=== PATIENT | male | born 1990 | race Caucasian/White ===

== ENCOUNTER 2017-10-22 22:16 | Emergency (ER) | payer OTHER ==
[~2017-10-22] VITALS: Ht 185.4 cm; Wt 86.2 kg
[~2017-10-22 22:16] MED LIST: NO RTN MEDS; PER PO
--- NOTE | 2017-10-22 22:20 | ER Report ---
History and Physical Time Seen By MD: 22:20 HPI/ROS CHIEF COMPLAINT: Right foot injury HISTORY OF PRESENT ILLNESS: 26-year-old male presents ambulatory to the ER complaining of severe left foot pain. Patient kicked a wall accidentally. He has deformity of his 4th and 5th toe. There is an abrasion on the side of the 4th toe. Patient states his tetanus shots greater than 10 years. Patient notes 6/10 throbbing pain, worsened with palpation and movement. Allergies: Coded Allergies: No Known Allergies (Verified Allergy, Mild, 10/22/17) Home Meds Active Scripts Oxycodone Hcl/Acetaminophen (PERCOCET 5-325 MG TABLET) 1 Each Tablet, 1 EACH PO Q4-6H Y for PAIN, #15 Prov:KRISH SON DO 10/22/17 Discontinued Reported Medications Oxycodone/Acetaminophen (OXYCODONE/ACETAMINOPHEN 5MG/325 MG) 5 Mg/325 Mg Tab, 1 TAB PO Q6H Y, #15 0 Refills 06/18/11 [No Rtn Meds] No Conflict Check, 0 Refills 06/18/11 Reviewed Nurses Notes: Yes Old Medical Records Reviewed: Yes Hx Substance Use Disorder: No Hx Alcohol Use: No Constitutional Vital Sign - Last 24 Hours 10/22/17 22:22 Temp 98.4 Pulse 71 Resp 14 B/P (MAP) 130/78 Pulse Ox 97 O2 Delivery Room Air Physical Exam General appearance: Mild distress Respiratory: Chest is non tender, lungs are clear to auscultation. Cardiac: Regular rate and rhythm Extremities: Examination of the right leg shows an intact knee. There is no tenderness on palpation. The ankle is unremarkable. There is deformity the 4th toe is angulated laterally. All digits are neurovascularly intact. DIFFERENTIAL DIAGNOSIS: After history and physical exam differential diagnosis was considered for sprain, strain, fracture, dislocation, contusion Medical Decision Making EKG/Imaging Imaging X-ray: Right foot, 3 views was obtained. I viewed the images myself on the PACS system. My interpretation of the images is: Fracture of the 4th and 5th proximal phalanx the radiologist interpretation had no clinically significant variation from this interpretation. ED Course/Re-evaluation ED Course Patient was admitted to an examination room. H&P was done. The differential diagnosis was considered. Diagnostic x-rays were performed. Patient with obvious deformity of his toe. Diagnostic x-rays show obvious fractures of the proximal phalanx of the 4th and 5th toes. Patient's placed in a postoperative shoe. He is given a prescription for Percocet. He is advised ibuprofen 600 mg 3 times daily. He is referred to [facility] for follow-up management Decision to Disposition Date: Oct 22, 2017 Decision to Disposition Time: 23:23 Depart Departure Latest Vital Signs Vital Signs Date Time Temp Pulse Resp B/P (MAP) Pulse Ox O2 Delivery O2 Flow Rate FiO2 10/22/17 22:22 98.4 71 14 130/78 97 Room Air Impression: Primary Impression: Fracture of phalanx of multiple toes Condition: Improved Disposition: HOME OR SELF-CARE Referrals: LAVINIA LIN MD New Scripts Oxycodone Hcl/Acetaminophen (PERCOCET 5-325 MG TABLET) 1 Each Tablet 1 EACH PO Q4-6H Y for PAIN, #15 Prov: KRISH SON DO 10/22/17 Patient Instructions: Toe Fracture (ED) Additional Instructions: Take ibuprofen 200 mg 3 tablets 3 times a day with food Elevate her foot and apply ice to the affected toes Follow-up with [facility] early next week Problem Qualifiers Primary Impression: Fracture of phalanx of multiple toes Encounter type: initial encounter Fracture type: closed Laterality: right Qualified Codes: S92.911A - Unspecified fracture of right toe(s), initial encounter for closed fracture KRISH SON DO Oct 22, 2017 22:20
[2017-10-22 22:22] VITALS: BP 130/78
[2017-10-22] MEDS ORDERED: ONDANSETRON 4 MG ODT TABDP SL ONE (22:45)
[2017-10-22] MEDS ORDERED: DIPHTH/TETANUS/ACEL. PERTUSSIS IM ONLY ONE (22:45)
[2017-10-22] MEDS ORDERED: OXYC-865 PO (23:25)
[2017-10-22] MEDS ORDERED: IBUPROFEN 600 MG TAB PO ONE (23:25)
[2017-10-22] MEDS ORDERED: oxyCODONE/ACETAMIN 5/325MG TH 2 TAB/BOTTLE PO ONE (23:25)
--- NOTE | 2017-10-23 00:06 | RADIOLOGY IMAGING REPORT ---
FACILITY: [facility] [place] PATIENT NAME: Giles Sanford : 1990 MR: [id number] V: [id number] EXAM DATE: ORDERING PHYSICIAN: KRISH SON TECHNOLOGIST: Location: [facility] Patient: Giles Sanford : 1990 Visit/Account:[id number] Date of Sevice: 10/22/2017 Right forefoot: Indication: Injury. Technique: 3 views were obtained. Comparison: None. Findings: There is a mildly displaced fracture through the proximal phalanx of the fourth toe. There is a nondisplaced fracture through the proximal phalanx of the fifth toe. The visualized skeletal str uctures are otherwise intact. There is no evidence of dislocation. There is normal mineralization. No focal soft tissue deformity is evident. Impression: There are acute fractures of the right fourth and fifth proximal phalanges. Report Dictated By: Ever Callaway MD at 10/22/2017 11:59 PM Report E-Signed By: Ever Callaway MD at 10/23/2017 12:01 AM WSN:[id number]
== END 2017-10-22 23:39 | disposition home or self-care (01) ==
LOC: ER 22:35
DX: S92.911A Unspecified fracture of right toe(s), initial encounter for closed fracture (principal); W22.09XA Striking against other stationary object, initial encounter
CPT/HCPCS: 73660; 90471; 90715; 99284; S0119; L3260